=== PATIENT | male | born 1990 | race Two or more races ===

== ENCOUNTER 2017-08-04 22:56 | Emergency (ER) | payer SELFPAY ==
[~2017-08-04] VITALS: Ht 175.3 cm; Wt 70.8 kg
[2017-08-04 23:12] VITALS: BP 101/61
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
[2017-08-05] MEDS ORDERED: Ketorolac 60mg Inj IM ONE
[2017-08-05 01:48] VITALS: BP 102/60
[2017-08-05] MEDS ORDERED: IBUPROFEN600 MG ORAL (02:03)
[2017-08-05] MEDS ORDERED: CYCLOBENZAPRINE10 MG ORAL (02:03)
[2017-08-05 02:13] VITALS: BP 102/60
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
== END 2017-08-05 02:14 | disposition home or self-care (01) ==
LOC: EMR 23:29
DX: S80.02XA Contusion of left knee, initial encounter (principal); S39.012A Strain of muscle, fascia and tendon of lower back, initial encounter; V09.9XXA Pedestrian injured in unspecified transport accident, initial encounter; Y92.410 Unspecified street and highway as the place of occurrence of the external cause
CPT/HCPCS: 72131; 74176; 96372; 99283